=== PATIENT | male | born 1960 | race Caucasian/White ===

== ENCOUNTER 2017-10-18 09:00 | Emergency (ER) | payer MEDICAID, OTHER ==
[~2017-10-18] VITALS: Ht 175.3 cm; Wt 108.0 kg
[~2017-10-18 09:00] MED LIST: ENAL20TA PO; HYDR25CA94 PO; OMEP-110 PO; SUCR1TAB PO
[2017-10-18] MEDS ORDERED: TAMS0.4C2 PO (09:27)
[2017-10-18] MEDS ORDERED: IBUP-1484 PO (09:28)
[2017-10-18] MEDS ORDERED: CLON0.2T PO (09:31)
[2017-10-18 09:48] LABS: MICROSCOPIC NOT IND
[2017-10-18 09:56] LABS: CULTURE INDICATED? NO
[2017-10-18] MEDS ORDERED: OXYcodone/APAP 5/325MG TABLET ONE (10:08)
[2017-10-18 10:14] VITALS: BP 151/84
[2017-10-18] MEDS ORDERED: OXYcodone/APAP 5/325MG TABLET PO ONE (10:30)
== END 2017-10-18 11:20 | disposition home or self-care (01) ==
LOC: ED 10:32
DX: S39.012A Strain of muscle, fascia and tendon of lower back, initial encounter (principal); M19.90 Unspecified osteoarthritis, unspecified site; I10 Essential (primary) hypertension; K21.9 Gastro-esophageal reflux disease without esophagitis; N40.0 Benign prostatic hyperplasia without lower urinary tract symptoms; Z87.442 Personal history of urinary calculi; Z90.49 Acquired absence of other specified parts of digestive tract; X58.XXXA Exposure to other specified factors, initial encounter; Y93.89 Activity, other specified; Y92.89 Other specified places as the place of occurrence of the external cause; Y99.8 Other external cause status
CPT/HCPCS: 72110; 81003; 99285

== ENCOUNTER 2020-04-05 11:08 | Emergency (ER) | payer MEDICAID, OTHER ==
[~2020-04-05] VITALS: Ht 175.3 cm; Wt 114.3 kg
[~2020-04-05 11:08] MED LIST changes: +CLON0.2T PO; -ENAL20TA PO; +ENAL20TA9 PO; +IBUP-1902 PO; +TAMS0.4C2 PO
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
--- NOTE | 2020-04-05 12:22 | NUR ---
PT TO XRAY
[2020-04-05] MEDS ORDERED: IBUPROFEN 600 MG TABLET PO ONE (12:30)
[2020-04-05] MEDS ORDERED: IBUPROFEN 600 MG TABLET ONE (13:06)
[2020-04-05 13:11] VITALS: BP 152/94
--- NOTE | 2020-04-05 13:11 | NUR ---
PT MEDICATED PER EMAR, TOLERATED WELL. PT GOT UP FOR RN TO ASSESS GAIT, GAIT STEADY UNASSISTED. ALL RESULTS BACK, CHART UP FOR RECHECK. AWAITING EDPA REASSESSMENT AND DISPO.
--- NOTE | 2020-04-05 14:12 | NUR ---
PT GIVEN DC INSTRUCTIONS AND SCRIPT, REFUSES REPEAT VS. PT A&O, RESPS EVEN AND UNLABORED, AMBULATORY TO DC DESK WITH STEADY GAIT. ALL QUESTIONS ANSWERED.
== END 2020-04-05 14:12 | disposition home or self-care (01) ==
LOC: ED 11:31
DX: S83.421A Sprain of lateral collateral ligament of right knee, initial encounter (principal); S70.02XA Contusion of left hip, initial encounter; S70.12XA Contusion of left thigh, initial encounter; R20.2 Paresthesia of skin; I10 Essential (primary) hypertension; K21.9 Gastro-esophageal reflux disease without esophagitis; V03.09XA Pedestrian with other conveyance injured in collision with car, pick-up truck or van in nontraffic accident, initial encounter; Y93.89 Activity, other specified; Y92.89 Other specified places as the place of occurrence of the external cause; Y99.8 Other external cause status
CPT/HCPCS: 72110; 99284

== ENCOUNTER 2020-11-05 00:05 | Emergency (ER) | payer MEDICAID ==
[~2020-11-05] VITALS: Ht 177.8 cm; Wt 108.0 kg
[2020-11-05] MEDS ORDERED: MORPHINE SULFATE 4 MG/ML, 1ML IVPush PRN (02:00)
[2020-11-05] MEDS ORDERED: SODIUM CHLORIDE FLUSH 10ML SYR IVF ONE (02:00)
[2020-11-05] MEDS ORDERED: KETOROLAC 30 MG/1 ML IVPush ONE (02:00)
[2020-11-05] MEDS ORDERED: KETOROLAC 30 MG/1 ML ONE (02:00)
[2020-11-05] MEDS ORDERED: MORPHINE SULFATE 4 MG/ML, 1ML ONE (02:00)
[2020-11-05 02:10] LABS: MICROSCOPIC NOT IND
[2020-11-05 02:11] LABS: BASOPHILS % (AUTO) 0 % (0-1); EOSINOPHILS % (AUTO) 1 % (1-7); LYMPHOCYTES % (AUTO) 9 % (22-44); MEAN CORPUSCULAR HEMOGLOBIN 32.7 pg (27.5-34.5); MEAN CORPUSCULAR HGB CONC 34.9 g/dL (33.2-36.2); MEAN PLATELET VOLUME 8.9 fL (7.4-10.4); MONOCYTES % (AUTO) 6 % (2-9); NEUTROPHILS % (AUTO) 84 % (42-75); PLATELET COUNT 155 x10^3/uL (130-400); RED BLOOD COUNT 4.62 x10^6/uL (4.38-5.82); RED CELL DISTRIBUTION WIDTH 11.8 % (9.4-14.8)
[2020-11-05 02:20] LABS: ALBUMIN 3.5 g/dL (3.4-5.0); ANION GAP 5 mmol/L (5-15); CALCIUM 8.8 mg/dL (8.5-10.1); CHLORIDE 108 mmol/L (98-107); CREATININE 1.07 mg/dL (0.7-1.3)
--- NOTE | 2020-11-05 02:21 | NUR ---
Break RN-pt returned from CT. Meds given as charted, 5 rights verified.
[2020-11-05 03:06] VITALS: BP 150/91
[2020-11-05] MEDS ORDERED: HYDROcodone/APAP 5/325 TABLET ONE (03:21)
[2020-11-05] MEDS ORDERED: HYDROcodone/APAP 5/325 TABLET PO ONE (03:30)
== END 2020-11-05 04:05 | disposition home or self-care (01) ==
LOC: ED 00:35
DX: R10.84 Generalized abdominal pain (principal); I10 Essential (primary) hypertension; K21.9 Gastro-esophageal reflux disease without esophagitis; Z90.49 Acquired absence of other specified parts of digestive tract
CPT/HCPCS: 36415; 74176; 80048; 81003; 82040; 85025; 96374; 96375; 99284; J1885; J2270